=== PATIENT | female | born 1975 | race Caucasian/White ===

== ENCOUNTER 2017-11-22 09:15 | Emergency (ER) | payer OTHER ==
[~2017-11-22] VITALS: Ht 167.6 cm; Wt 89.8 kg
--- NOTE | ~2017-11-22 | EKG ---
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 : 1975 Requested By: Chase Sheets Order Number: [id number] MD: Cheo Lr Measurements Intervals [place] Rate: 72 P: 7 GA: 92 QRS: 79 QRSD: 94 T: 54 QT: 409 QTc: 448 Interpretive Statements Sinus rhythm Short GA interval Borderline low voltage, extremity leads Compared to ECG 06/26/2016 11:10:52 Short GA interval now present Sinus tachycardia no longer present Electronically Signed On 11-23-2017 12:59:12 CDT by Cheo Lr [email or web address] <ELECTRONICALLY SIGNED> By: Cheo Lr MD, [facility] 11/23/17 1259 [id number] Cheo Lr MD, [facility] /EPI
[~2017-11-22 09:15] MED LIST: ACYCLOVIR 200200 MG PO; ADIPEX-P37.5 M1 OR; ARMOUR THYROID60 M1 PO; BENTYL 20 MG TA20 M1 PO; BUDEPRION SR150 MG PO; CIPROFLOXACIN500 M1 PO; CYMBALTA60 MG PO; DOXEPIN 25 MG C25 MG GT; DOXYCYCLINE 10100 MG PO; FLAGYL500 MG PO; HYDROCODON-ACE1 EAC7 PO; IBUPROFEN 200200 M1 OR; IBUPROFEN 600600 M1 PO; KEFLEX500 MG PO; LAMICTAL XR200 MG OR; LOSARTAN POTAS100 MG PO; LOSARTAN-HCTZ1 EAC2 PO; NAPROSYN500 MG OR; NAPROSYN500 MG PO; NORCO 5-325 TA1 EACH PO; NORVASC 2.5 MG2.5 M1 PO; NORVASC10 MG PO; NORVASC5 MG PO; OMEPRAZOLE 20 M20 M1 PO; ONDANSETRON HCL4 M2 PO; PERCOCET 5-3251 EACH PO; PHENERGAN 25 MG25 M1 PO; POTASSIUM20 PO; PROBIOTIC1 EAC1 PO; PROTONIX40 MG PO; RESTORA CAPSUL1 EACH PO; SERTRALINE HCL50 MG PO; ULTRAM 50MG TAB50 MG PO; VICODIN 5-5001 EACH PO; VITAMIN D32000 UNI1; VITAMINC500; VITAMINC500 PO; WELLBUTRIN SR150 MG OR; ZOFRAN ODT4 MG; ZOFRAN ODT4 MG PO; ZOLOFT25 MG PO; [UNRECOGNIZED DRUG - OTHER] PO
[2017-11-22] MEDS ORDERED: PROZAC20 MG PO (09:34)
[2017-11-22] MEDS ORDERED: KLOR-CON M1010 MEQ PO (09:36)
[2017-11-22 11:26] LABS: URINE BILIRUBIN NEGATIVE (Negative); URINE BLOOD NEGATIVE (Negative); URINE CLARITY CLEAR; URINE COLOR YELLOW; URINE GLUCOSE-RANDOM* NEGATIVE (Negative); URINE KETONES NEGATIVE (Negative); URINE LEUKOCYTES-REFLEX NEGATIVE (Negative); URINE NITRITE-REFLEX NEGATIVE (Negative); URINE PROTEIN (DIPSTICK) NEGATIVE (Negative); URINE UROBILINOGEN 0.2 E.U./dl (0.2-1.0)
[2017-11-22 11:36] LABS: ABSOLUTE NEUTROPHILS 4.1 thou/uL (1.4-8.2); BASOPHILS 0.5 % (0.0-2.0); EOSINOPHILS 2.5 % (0.0-3.0); HEMOGLOBIN 14.3 gm/dL (12.0-15.0); LYMPHOCYTES 30.2 % (24.0-44.0); MCH 29.6 pg (26.0-34.0); MCHC 34.9 g/dL (28.0-37.0); MONOCYTES 6.4 % (1.0-8.0); PLATELET COUNT 282 thou/uL (150-400); POLYS 60.4 % (36.0-66.0); RBC 4.83 mil/uL (4.20-5.00); RDW 12.6 % (10.5-14.5); WBC 6.8 thou/uL (4.0-11.0)
[2017-11-22 11:39] LABS: ANION GAP 10 mmol/L (7-16); BUN 15 mg/dL (7-18); CALCIUM 9.1 mg/dL (8.5-10.1); CHLORIDE 105 mmol/L (98-107); CO2 24 mmol/L (21-32); CREATININE 1.1 mg/dL (0.6-1.0); GLUCOSE 99 mg/dL (74-106); POTASSIUM 3.7 mmol/L (3.5-5.1); SODIUM 139 mmol/L (136-145)
[2017-11-22 11:48] LABS: ALBUMIN 3.5 g/dL (3.4-5.0); LIPASE 180 U/L (73-393); SGOT 26 U/L (15-37); SGPT 41 U/L (30-65); TOTAL BILIRUBIN 0.8 mg/dL (<0.1-1.0); TOTAL PROTEIN 6.8 g/dL (6.4-8.2); TROPONIN-I <0.06 ng/mL (<0.06)
[2017-11-22] MEDS ORDERED: HYDROCORTISONE30 G9 RECTAL (12:52)
[2017-11-22] MEDS ORDERED: TRAMADOL 50 MG50 MG PO (12:52)
[2017-11-22] MEDS ORDERED: NAPROSYN500 MG PO (12:52)
== END 2017-11-22 13:17 | disposition home or self-care (01) ==
LOC: ER 09:15
PROVIDERS: Emergency Medicine
DX: K62.5 Hemorrhage of anus and rectum (principal); R19.09 Other intra-abdominal and pelvic swelling, mass and lump; R10.32 Left lower quadrant pain; R19.7 Diarrhea, unspecified; F41.9 Anxiety disorder, unspecified; F31.9 Bipolar disorder, unspecified; N80.9 Endometriosis, unspecified; I10 Essential (primary) hypertension; G47.30 Sleep apnea, unspecified; Z90.49 Acquired absence of other specified parts of digestive tract; Z90.710 Acquired absence of both cervix and uterus; Z88.8 Allergy status to other drugs, medicaments and biological substances

== ENCOUNTER → 2018-04-11 | Outpatient (CLI) | payer OTHER ==
[~2018-04-11] VITALS: Ht 167.6 cm; Wt 81.7 kg
[~2018-04-11] MED LIST changes: +ADDERALL 15 MG15 MG PO; +ECHINACEA400 MG PO; +HYDROCORTISONE30 G9 RECTAL; +KLOR-CON M1010 MEQ PO; +LEVOXYL25 MCG PO; +PROZAC20 MG PO; +TRAMADOL 50 MG50 MG PO; +VITAMIN C WITH500 MG PO
--- NOTE | ~2018-04-11 | P ---
[facility] [place] [address] PROCEDURE REPORT Name: MICHELLE DANIELLE Room #: REG David Elisha.#: [id number] Admission: 04/11/18 Attend Phys: Ed Jones Discharge: Date of : 73 Report #: [id number] THIS REPORT FOR: //name// CC: Ed De Dios DATE OF SERVICE: 04/11/2018 PROCEDURE PERFORMED: Colonoscopy with biopsies. HISTORY OF PRESENT ILLNESS: The patient is a 42-year-old female with recurrent intermittent left lower quadrant abdominal pain. She also has intermittent diarrhea and bright red blood per rectum. Bleeding is described as a small amount with wiping or mixed in with the stool approximately 1 time per week. She does complain of anorectal pain. She had a colonoscopy and an EGD by myself in 05/2014. EGD at that time showing grade B erosive esophagitis. Repeat EGD today showing same findings. Colonoscopy at that time showing diverticulosis in the sigmoid colon. Random biopsies at that time were negative for microscopic colitis. The patient had a CT scan of the abdomen and pelvis on 11/22/2017, no acute findings in the abdomen or pelvis were noted. There was an indeterminate 1.3 cm low density mass in the medial segment of the left hepatic lobe. This is similar since previous multiple studies dating back to 2014, likely benign entity such as an atypical hemangioma. Also noted again with a 2.6 x 3.0 cm, left retroperitoneal mass located lateral to the left common iliac artery, slightly increased in size, given its slow growth over 4 years, it is a likely a benign process; however, this is indeterminant. Plan is for colonoscopy. DESCRIPTION OF PROCEDURE: The risks and benefits of the procedure were explained to the patient, those risks including but not limited to bleeding, perforation and the risk of sedation. She understood these risks and gave informed consent. Sedation was given using propofol per Anesthesia. Next, a digital rectal exam was initially performed, which was normal. Next, using a standard Olympus colonoscope, the scope was placed in the patient's anus and advanced under direct vision to the cecum. The overall prep was excellent. The cecum and ileocecal valve were normal in appearance. Terminal ileum was intubated and normal in appearance. A couple diverticula were noted in the ascending colon, otherwise normal. No evidence of inflammation. Random biopsies were obtained to rule out the possibility of microscopic colitis. The transverse and descending colon were normal. A few scattered diverticula were also noted in the sigmoid colon, no evidence of inflammation. The rectal mucosa was normal. On retroflexion, no abnormalities were noted. Close examination of the anal canal showed a small anal fissure. No evidence of active bleeding. Also, small external hemorrhoids. At this point, the scope was then withdrawn and the procedure terminated. The patient tolerated the procedure well. [address] [address] PROCEDURE REPORT Name: MICHELLE DANIELLE Room #: REG MARTINEZ Douglas#: [id number] Admission: 04/11/18 Attend Phys: Ed Jones Discharge: Date of : 73 Report #: [id number] IMPRESSION: 1. A few small diverticula in the ascending colon and sigmoid colon, no evidence of inflammation. 2. External hemorrhoids. 3. Anal fissure. 4. Otherwise, normal colonoscopy. RECOMMENDATIONS: 1. Await biopsy results. 2. We will start Levsin on a p.r.n. basis as the patient's symptoms may be secondary to irritable bowel syndrome. This could help with her left lower quadrant abdominal pain. The patient could be having recurrent diverticulitis; however, CT scan at the time of abdominal pain last summer showed no evidence of inflammation. She has been treated with Cipro several times in the last year, which is helpful. She also has a mass in the retroperitoneal area that could be contributing to pain, but this has not changed significantly, although it is somewhat increased in size over a number of years. As far as her bright red blood per rectum, I suspect this is coming from an anal fissure which was seen today. We will start treatment with Analpram t.i.d. for the next 2 weeks and then on a p.r.n. basis. If there is no improvement in the patient's symptoms, could consider a trial of Xifaxan or further evaluation of retroperitoneal mass or consider surgical options of sigmoid colon, although she does not have documented recurrent diverticulitis. Thank you for allowing me to participate in her care. By: [id number] Ed Glover MD /leticia
--- NOTE | 2018-04-11 10:12 | P ---
[facility] [place] [address] PROCEDURE REPORT Name: MICHELLE DANIELLE Room #: REG MARTINEZ Misael#: [id number] Admission: 04/11/18 Attend Phys: Ed Jones Discharge: Date of : 73 Report #: [id number] THIS REPORT FOR: //name// CC: Ed De Dios DATE OF SERVICE: 04/11/2018 PROCEDURE PERFORMED: Upper endoscopy with biopsies and esophageal dilation. HISTORY OF PRESENT ILLNESS: The patient is a 42-year-old female with a history of dysphagia for approximately 1 year. She underwent an upper endoscopy by myself several years ago, was noted to have grade B erosive esophagitis at that time, recommended daily PPI therapy. She has not been on any antacid therapy. She also complains of left lower quadrant abdominal pain, bright red blood per rectum, intermittent diarrhea. Plan is for EGD and colonoscopy today. DESCRIPTION OF PROCEDURE: The risks and benefits of the procedure were explained to the patient, those risks including but not limited to bleeding and perforation, the risk of sedation. She understood these risks and gave informed consent. Sedation was given using propofol per anesthesia. Next, using a standard Olympus upper endoscope, the scope was placed in the patient's mouth and advanced under direct vision through the esophagus, stomach and into the second portion of the duodenum. Larynx was normal in appearance. The upper and mid esophagus was normal. In the distal esophagus at the GE junction once again grade B erosive esophagitis was noted. No obvious stricture was seen. Overall, the gastric mucosa was normal in the fundus and body. There was some mild erythema consistent with a mild gastritis in the antrum. No evidence of ulcerations or erosions. Biopsies were obtained to rule out H. pylori. The pylorus was normal and patent. In the duodenal bulb, mild duodenitis was noted. The first and second portion of the duodenum was normal. Biopsies were obtained to rule out the possibility of celiac sprue. The scope was then brought back up into the patient's stomach and a Savary guidewire was inserted through the scope, leaving the guidewire in place as the scope was then withdrawn. Next, a 48-Bengali Savary dilation of the esophagus was performed without difficulty. The wire and dilator removed. The scope was reintroduced into the patient's stomach. There was no evidence of mucosal tear after dilation. The scope was then withdrawn and the procedure terminated. The patient tolerated the procedure well. IMPRESSION: 1. Grade B erosive esophagitis. 2. Mild gastritis. 3. Mild duodenitis. 4. Otherwise, normal upper endoscopy. [address] [address] PROCEDURE REPORT Name: MICHELLE DANIELLE Joshua Room #: REG MARTINEZ Douglas#: [id number] Admission: 04/11/18 Attend Phys: Ed Jones Discharge: Date of : 73 Report #: [id number] RECOMMENDATIONS: 1. Await biopsy results. 2. Recommend daily PPI therapy. 3. Observe the patient post-dilation. 4. We will proceed with colonoscopy next today. Thank you for allowing me to participate in her care. <ELECTRONICALLY SIGNED> By: Ed Glover MD 04/11/18 1012 [id number] Ed Glover MD /nt
--- NOTE | 2018-04-15 12:07 | PATH ---
[facility] [place] [address] PATHOLOGY RPT PROCEDURE Name: MICHELLE DANIELLE Room #: REG MARTINEZ AngelaElishaFlorence.#: [id number] Admission: 04/11/18 Date of : 73 Discharge: Report #: [id number] Path Case #: [id number] [facility] Accession Number: [id number] . 01 Material submitted: . PART A: BX OF DUODENUM R/O CELIAC DISEASE PART B: BX OF GASTRITIS R/O H. PYLORI PART C: RANDOM COLON BX R/O MICROSCOPIC COLITIS . 01 Clinical history: . Pre-OP DX: Dysphagia, diverticulitis Post-OP DX: Duodenitis, gastritis, diverticulosis . 02 Diagnosis: A. Small bowel mucosa, duodenum rule out celiac disease, endoscopic biopsy: - Focal fundic-type metaplasia associated with mild acute inflammation, changes compatible with mild active peptic duodenitis. - Minimal villous blunting associated with acute and chronic inflammation. - No increase in intraepithelial lymphocytes. . B. Gastric mucosa, gastritis rule out H. pylori, endoscopic biopsy: - Mild reactive gastropathy. - Negative for intestinal metaplasia or atrophy. - Negative for Helicobacter pylori (properly controlled immunohistochemical stain performed). . C. Large intestinal mucosa, random colon rule out microscopic colitis, endoscopic biopsy: - Pigmented macrophages within lamina propria, compatible with melanosis coli, mild focal active cryptitis. - Negative for dysplasia or malignancy. . 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 02 Comment: Sections of the colonic mucosa designated "random colon" show focal cryptitis, and a moderately cellular lamina propria composed predominantly of lymphocytes and plasma cells and occasional eosinophils. Surface ulceration is not identified. There are no crypt abscesses, granulomas or viral inclusions. Given the description, the differential diagnosis includes mild focal active colitis of self-limited etiology, resolving episode of colitis, colitis secondary to laxative use, medication induced colitis, as well as diverticulitis. Please correlate with clinical as well as endoscopic findings. 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 02 Electronically signed: . Janna Mitchell MD, Pathologist NPI- [id number] . 01 Gross description: . A. Received in formalin labeled "Limback, Michelle, BX duodenum," are multiple segments of bose soft tissue measuring 0.8 x 0.3 x 0.1 cm in aggregate dimensions. The specimen is filtered and submitted entirely in cassette A1. . B. Received in formalin labeled "Limback, Michelle, BX gastritis, rule out H. pylori," are 4 segments of bose soft tissue measuring 0.9 x 0.6 x 0.1 cm in aggregate dimensions and ranging from 0.2 to 0.5 cm in maximum dimension. The specimen is submitted entirely in cassette B1. . C. Received in formalin labeled "Limback, Michelle, random colon BX " are multiple segments of bose soft tissue measuring 0.5 x 0.3 x 0.1 cm in aggregate dimensions. The specimen is filtered and entirely submitted in cassette C1. (TSD; 04/11/2018) TOB/TOB . 02 Pathologist provided ICD-10: K29.80, K31.9, K63.89 . 02 CPT . 932484, 939400, 574220, V63236 Specimen Comment: A courtesy copy of this report has been sent to Specimen Comment: [phone], . Specimen Comment: Report sent to and Performed at: [address], [place] [id number] MD Ash Cota MD Phone: [phone] Performed at: [address] [id number] MD Janna Mitchell MD Phone: [phone]
== END | disposition home or self-care (01) ==
LOC: GI 06:17
DX: K57.30 Diverticulosis of large intestine without perforation or abscess without bleeding (principal); K64.4 Residual hemorrhoidal skin tags; K60.2 Anal fissure, unspecified; K31.9 Disease of stomach and duodenum, unspecified; K63.89 Other specified diseases of intestine; K29.80 Duodenitis without bleeding; K22.10 Ulcer of esophagus without bleeding; K29.70 Gastritis, unspecified, without bleeding; R13.19 Other dysphagia; I10 Essential (primary) hypertension; F31.9 Bipolar disorder, unspecified; F41.9 Anxiety disorder, unspecified; Z90.49 Acquired absence of other specified parts of digestive tract; Z90.711 Acquired absence of uterus with remaining cervical stump; Z87.19 Personal history of other diseases of the digestive system; Z98.890 Other specified postprocedural states; Z79.899 Other long term (current) drug therapy; Z88.8 Allergy status to other drugs, medicaments and biological substances
CPT/HCPCS: 62110; 62900

== ENCOUNTER 2020-01-25 13:07 | Emergency (ER) | payer OTHER ==
[~2020-01-25] VITALS: Ht 167.6 cm; Wt 81.7 kg
[2020-01-25 15:10] LABS: MCH 28.8 pg (26.0-34.0); MCHC 33.4 g/dL (28.0-37.0); MCV 86.2 fL (80.0-100.0); RBC 4.88 mil/uL (4.20-5.00); RDW 12.9 % (10.5-14.5); WBC 7.5 thou/uL (4.0-11.0)
[2020-01-25 15:14] LABS: URINE BILIRUBIN NEGATIVE (Negative); URINE BLOOD NEGATIVE (Negative); URINE CLARITY CLEAR; URINE COLOR YELLOW; URINE GLUCOSE-RANDOM* NEGATIVE (Negative); URINE KETONES NEGATIVE (Negative); URINE LEUKOCYTES-REFLEX NEGATIVE (Negative); URINE NITRITE-REFLEX NEGATIVE (Negative); URINE PROTEIN (DIPSTICK) TRACE (Negative); URINE UROBILINOGEN 0.2 E.U./dl (0.2-1.0)
[2020-01-25 15:27] LABS: CALCIUM 9.2 mg/dL (8.5-10.1); CREATININE 1.1 mg/dL (0.6-1.0); POTASSIUM 3.2 mmol/L (3.5-5.1)
[2020-01-25 15:35] LABS: ALBUMIN 3.7 g/dL (3.4-5.0); DIRECT BILIRUBIN 0.2 mg/dL (<0.1-0.2); TOTAL BILIRUBIN 0.7 mg/dL (0.2-1.0); TOTAL PROTEIN 6.8 g/dL (6.4-8.2)
[2020-01-25] MEDS ORDERED: NAPROSYN500 M1 PO (16:47)
[2020-01-25 16:58] VITALS: BP 134/80
== END 2020-01-25 16:58 | disposition home or self-care (01) ==
LOC: ER 13:07
PROVIDERS: Emergency Medicine
DX: R10.30 Lower abdominal pain, unspecified (principal); I10 Essential (primary) hypertension; E03.9 Hypothyroidism, unspecified; Z90.49 Acquired absence of other specified parts of digestive tract; Z88.8 Allergy status to other drugs, medicaments and biological substances